=== PATIENT | female | born 1955 | race Caucasian/White ===

== ENCOUNTER 2016-10-16 18:34 | Emergency (ER) | payer MEDICARE ==
[~2016-10-16] VITALS: Ht 162.5 cm; Wt 59.0 kg
[~2016-10-16 18:34] MED LIST: ADVAIR 250/501 EA INH; CIPROFLOXACIN500 M4 PO; CITALOPRAM HYDR40 MG PO; CYCLOBENZAPRINE10 MG PO; NICOTINE T21 MG/24 H TD; PREDNISONE10 MG PO; SPIRIVA18 MCG PO; TRAMADOL HCL50 MG PO; VENTOLIN H0.09 MG/AC INH; ZITHROMAX250 MG PO
[2016-10-16] MEDS ORDERED: CITALOPRAM40 MG PO (18:53)
[2016-10-16] MEDS ORDERED: ASPIRIN81 M1 PO (18:54)
[2016-10-16 19:31] LABS: BASO # 0.1 10*3/uL (0.0-0.1); BASO % 0.4 % (0.0-1.0); EOS # 0.1 10*3/uL (0.0-0.4); EOS % 1.2 % (1.0-4.0); HEMATOCRIT 43.9 % (37.0-47.0); HEMOGLOBIN 14.2 g/dl (12.0-16.0); IG # 0.1 10*3/uL (0.0-0.1); LYMPH # 1.3 10*3/uL (1.3-4.4); MEAN CELL VOLUME 91.6 fl (81.0-99.0); MEAN CORPUSCULAR HGB 29.6 pg (27.0-31.0); MEAN CORPUSCULAR HGB CONC 32.3 g/dl (33.0-37.0); MEAN PLATELET VOLUME 8.8 fl (9.6-12.3); MONO # 1.1 10*3/uL (0.1-1.0); MONO % 8.8 % (3.0-9.0); NEUT # 9.4 10*3/uL (2.3-7.9); NEUT % 77.9 % (47.0-73.0); PLATELET COUNT AUTOMATED 571 10*3/uL (130-400); RED BLOOD COUNT 4.79 10*6/uL (4.10-5.10); RED CELL DISTRI WIDTH 13.2 % (0-14.5)
[2016-10-16 19:39] LABS: BILIRUBIN NEGATIVE (NEGATIVE); BLOOD NEGATIVE (NEGATIVE); CLARITY CLEAR (CLEAR); COLOR YELLOW (YELLOW); GLUCOSE NEGATIVE (NEGATIVE); KETONE NEGATIVE (NEGATIVE); LEUKO ESTERASE 1+ (NEGATIVE); NITRITE NEGATIVE (NEGATIVE); PH 6.5 (5.0-9.0); PROTEIN NEGATIVE (NEGATIVE); SPECIFIC GRAVITY <= 1.005 (1.005-1.030); UROBILINOGEN 0.2 E.U./dl (0.2-1.0)
[2016-10-16 19:49] LABS: ALBUMIN 3.4 gm/dl (3.1-4.5); ALKALINE PHOSPHATASE 103 U/L (45-117); BILIRUBIN, TOTAL 0.2 mg/dl (0.2-1.0); BUN 4 mg/dl (7-24); C-REACTIVE PROTEIN 8.67 MG/DL (0-0.3); CARBON DIOXIDE 32 mmol/L (21-32); CHLORIDE 96 mmol/L (98-107); EST GLOM FILT AFRICAN AMERICAN > 60 ml/min; GLUCOSE 107 mg/dL (65-99); SGOT/AST 22 IU/L (3-35); SGPT/ALT 30 U/L (12-78); SODIUM 138 mmol/L (136-145); TOTAL PROTEIN 7.6 gm/dL (6.4-8.2)
[2016-10-16 19:50] LABS: BACTERIA 2+; RBC 0-2 rbc/hpf (0-2); URINE REFLEX COMMENT YES (NO)
[2016-10-16 19:51] LABS: TROPONIN I < 0.015 ng/ml (<0.045)
[2016-10-16] MEDS ORDERED: HYDROCODONE BIT1 T11 PO (20:59)
[2016-10-16] MEDS ORDERED: BACTRIM DS 8001 TA1 PO (20:59)
== END 2016-10-16 21:23 | disposition home or self-care (01) ==
LOC: ED 18:34
PROVIDERS: Emergency Medicine
DX: N39.0 Urinary tract infection, site not specified (principal); N32.9 Bladder disorder, unspecified; N88.9 Noninflammatory disorder of cervix uteri, unspecified; J44.9 Chronic obstructive pulmonary disease, unspecified; F17.200 Nicotine dependence, unspecified, uncomplicated; Z79.82 Long term (current) use of aspirin; Z79.899 Other long term (current) drug therapy

== ENCOUNTER 2016-12-30 14:49 | Emergency (ER) | payer MEDICARE ==
[~2016-12-30] VITALS: Wt 54.4 kg
[~2016-12-30 14:49] MED LIST changes: +ASPIRIN81 M1 PO; +BACTRIM DS 8001 TA1 PO; +CITALOPRAM40 MG PO; +HYDROCODONE BIT1 T11 PO
[2016-12-30] MEDS ORDERED: SPIRIVA -- 3018 MCG INH (15:03)
[2016-12-30 15:32] LABS: BASO % 0.1 % (0.0-1.0); EOS % 0.1 % (1.0-4.0); HEMATOCRIT 36.6 % (37.0-47.0); HEMOGLOBIN 11.2 g/dl (12.0-16.0); IG # 0.1 10*3/uL (0.0-0.1); LYMPH # 1.2 10*3/uL (1.3-4.4); LYMPH % 7.6 % (27.0-41.0); MEAN CELL VOLUME 81.7 fl (81.0-99.0); MEAN CORPUSCULAR HGB CONC 30.6 g/dl (33.0-37.0); MEAN PLATELET VOLUME 8.7 fl (9.6-12.3); MONO # 1.1 10*3/uL (0.1-1.0); MONO % 6.7 % (3.0-9.0); NEUT # 13.4 10*3/uL (2.3-7.9); NEUT % 84.9 % (47.0-73.0); PLATELET COUNT AUTOMATED 412 10*3/uL (130-400); RED BLOOD COUNT 4.48 10*6/uL (4.10-5.10); RED CELL DISTRI WIDTH 16.2 % (0-14.5); WHITE BLOOD COUNT 15.8 10*3/uL (4.8-10.8)
[2016-12-30 15:48] LABS: ALBUMIN 2.6 gm/dl (3.1-4.5); ALKALINE PHOSPHATASE 171 U/L (45-117); BILIRUBIN, TOTAL 0.5 mg/dl (0.2-1.0); BUN 13 mg/dl (7-24); CARBON DIOXIDE 32 mmol/L (21-32); CHLORIDE 93 mmol/L (98-107); EST GLOM FILT AFRICAN AMERICAN > 60 ml/min; GLUCOSE 120 mg/dL (65-99); POTASSIUM 3.8 mmol/L (3.5-5.1); SGOT/AST 22 IU/L (3-35); SGPT/ALT 33 U/L (12-78); SODIUM 136 mmol/L (136-145); TOTAL PROTEIN 7.6 gm/dL (6.4-8.2)
[2016-12-30 15:52] LABS: TROPONIN I 0.089 ng/ml (<0.045)
[2016-12-30 16:49] LABS: BILIRUBIN 1+ (NEGATIVE); BLOOD 3+ (NEGATIVE); CLARITY SL CLOUDY (CLEAR); COLOR YELLOW (YELLOW); GLUCOSE NEGATIVE (NEGATIVE); KETONE NEGATIVE (NEGATIVE); LEUKO ESTERASE TRACE (NEGATIVE); NITRITE NEGATIVE (NEGATIVE); PROTEIN TRACE (NEGATIVE); SPECIFIC GRAVITY 1.015 (1.005-1.030)
[2016-12-30 16:55] LABS: URINE REFLEX COMMENT YES (NO)
[2016-12-30 16:56] LABS: BACTERIA TRACE; HYALINE CAST 0-2; MUCOUS 1+
== END 2016-12-30 20:03 | disposition short-term general hospital (02) ==
LOC: ED 14:49
PROVIDERS: Registered Nurse
DX: A41.9 Sepsis, unspecified organism (principal); J96.21 Acute and chronic respiratory failure with hypoxia; J44.1 Chronic obstructive pulmonary disease with (acute) exacerbation; F17.210 Nicotine dependence, cigarettes, uncomplicated; Z99.81 Dependence on supplemental oxygen; Z79.82 Long term (current) use of aspirin; Z79.899 Other long term (current) drug therapy